=== PATIENT | male | born 1975 | race African-American/Black ===

== ENCOUNTER 2024-06-19 15:56 | Emergency (ER) | payer OTHER ==
[~2024-06-19] VITALS: Ht 175.3 cm; Wt 90.9 kg
[2024-06-19 16:03] VITALS: BP 117/68; PULSE 94; RESP 17; TEMP 98; O2SAT 98
== END 2024-06-19 16:26 | disposition home or self-care (01) ==
LOC: EMS 15:56
DX: T16.2XXA Foreign body in left ear, initial encounter (principal); J45.909 Unspecified asthma, uncomplicated; F17.210 Nicotine dependence, cigarettes, uncomplicated; W44.G1XA Audio device entering into or through a natural orifice, initial encounter; Y93.89 Activity, other specified; Y92.89 Other specified places as the place of occurrence of the external cause; Y99.8 Other external cause status
CPT/HCPCS: 69200; 99284; Z7502